=== PATIENT | male | born 1945 | race Caucasian/White ===

== ENCOUNTER → 2024-04-25 08:21 | Outpatient (REF) | payer MEDICARE, OTHER, SELFPAY | LOC: HWRAD 08:21 | PROVIDERS: ATTENDING PHYSICIAN Otolaryngology; FAMILY PHYSICIAN Family Medicine | DX: J32.8 Other chronic sinusitis (principal) | CPT/HCPCS: 70486 ==

== ENCOUNTER 2024-06-20 06:17 | Day surgery (SDC) | payer MEDICARE, OTHER, SELFPAY ==
[2024-06-20] VITALS (8 sets, daily range): BP systolic 109–142; BP diastolic 65–88; BMI 26.5
[2024-06-20] MEDS: NORMOSOL-R/PLASMALYTE-A 1000 IV (08:17)
== END 2024-06-20 13:05 | disposition home or self-care (01) ==
LOC: SDS 06:17
PROVIDERS: ATTENDING PHYSICIAN Otolaryngology
DX: J32.0 Chronic maxillary sinusitis (principal); J34.2 Deviated nasal septum
CPT/HCPCS: 31276; 31257; 30520; 31256; 88304; 88311; 93005

== ENCOUNTER → 2024-10-05 13:38 | Outpatient (REF) | payer MEDICARE, OTHER, SELFPAY | LOC: PAVMRI 13:38 | PROVIDERS: ATTENDING PHYSICIAN Otolaryngology; FAMILY PHYSICIAN Family Medicine | DX: H91.91 Unspecified hearing loss, right ear (principal) | CPT/HCPCS: 70553; A9575 ==

== ENCOUNTER → 2025-01-10 09:15 | Outpatient (REF) | payer MEDICARE, OTHER, SELFPAY | LOC: SDSPAT 09:15 | PROVIDERS: ATTENDING PHYSICIAN Surgery; FAMILY PHYSICIAN Family Medicine | DX: K40.90 Unilateral inguinal hernia, without obstruction or gangrene, not specified as recurrent (principal); K42.9 Umbilical hernia without obstruction or gangrene; Z01.818 Encounter for other preprocedural examination | CPT/HCPCS: 36415; 93005 ==

== ENCOUNTER 2025-01-19 06:28 | Day surgery (SDC) | payer MEDICARE, OTHER, SELFPAY ==
[2025-01-10 13:55] VITALS: BMI 27.0
[2025-01-19] VITALS (9 sets, daily range): BP systolic 108–135; BP diastolic 61–84; BMI 27.0
[2025-01-19] MEDS: TYLENOL 1000 MG PO (09:32)
--- NOTE | 2025-01-19 10:24 | W.SUR.PREOP ---
Pre-Operative Surgical Note
-
I have examined this patient prior to the performance of the scheduled procedure.
The patient's condition is unchanged from the time of the current History and
Physical and the patient is able to undergo the scheduled procedure.
--- NOTE | 2025-01-19 10:24 | HP.FOC2 ---
Focused History & Physical
Chief Complaint
HPI:
Chief Complaint: Right inguinal hernia, umbilical hernia
HPI / Indication for Planned Procedure: This is a 79-year-old male who presents with a symptomatic right inguinal hernia and found to have a concurrent asymptomatic umbilical hernia. Will plan for a robotic right inguinal hernia repair with mesh as
well as a robotic umbilical hernia repair with mesh.
Relevant Past Medical History: Negative
Relevant Social History: Negative
Relevant Family History: Negative
Relevant Past Surgical History: Negative
Review of Systems
Review of Pertinent Systems: All Systems Negative
Medication
See Medication form for detailed medications: Yes
Medication List (including Herbals & OTC):
amlodipine 2.5 mg tablet 2.5 mg PO DAILY 06/14/24
amlodipine 5 mg tablet 5 mg PO DAILY 06/14/24
finasteride 5 mg tablet 5 mg PO DAILY 06/14/24
tamsulosin 0.4 mg capsule 0.4 mg PO HS 06/14/24
trazodone 150 mg tablet 150 mg PO HS for sleep 06/14/24
lorazepam 0.5 mg tablet 0.5 mg PO BID PRN anxiety 01/10/25
Medications Reviewed: Yes
Allergies and Reactions
Patient has Allergies: No
Noted Allergies and Reactions:
Allergy/AdvReac Type Severity Reaction Status Date / Time
No Known Allergies Allergy Verified 01/19/25 09:21
Pertinent Physical Exam
All Other Systems: Negative
Head/Neck: Normal
Diagnosis / Assessment
This is a 79-year-old male who presents with a symptomatic right inguinal hernia and found to have a concurrent asymptomatic umbilical hernia.
Plan / Procedure
Will plan for a robotic right inguinal hernia repair with mesh as well as a robotic umbilical hernia repair with mesh.
Anesthesia/Sedation to be done by Anesthesia Provider: Yes
[2025-01-19] MEDS: NORMOSOL-R/PLASMALYTE-A 1000 IV (10:28)
--- NOTE | 2025-01-19 13:55 | W.IMMPOSTOP ---
Surgical Immed Post Op Note
-
Primary Surgeon: Edwardo Maier MD
Assisting Surgeon: None
Pre-op Diagnosis: [Right inguinal hernia, umbilical hernia]
Post-op Diagnosis: Same
Procedure Performed:
1. Robotic right inguinal hernia repair with mesh
2. Open umbilical hernia repair with mesh (2 cm)
Anesthesia Type: General
Specimen / Cultures: None
Estimated Blood Loss: 11 cc
Complications: None
Operative Findings: We began by doing a cutdown and hernia reduction at the umbilicus. The hernia containing preperitoneal fat was isolated and incised. Our 8 mm camera port was placed through here. On entry a very distended bladder was
identified so Rosado catheter was placed under the drapes before moving forward with the operation. Very large indirect inguinal hernia. No direct component, small femoral component (reduced), large broad-based cord lipoma, reduced. After
achieving the critical view of the n.p.o. the space was reinforced with an extra-large Bard 3D max mid weight uncoated polypropylene mesh. After removing the ports under visualization. The 2 cm umbilical hernia defect was repaired with a 5 cm
round Bard soft uncoated polypropylene mesh laid in the preperitoneal space followed by 3 [id number] 0 Surgilon sutures. The Rosado was removed at the end of the case.
--- NOTE | 2025-01-19 14:03 | OR.RPT ---
Operative Report
Operative Report
Patient Name: Blair Hernandez
: 1945
Date of Operation: 01/19/2025
Preoperative Diagnosis: Right inguinal hernia, umbilical hernia
Postoperative Diagnosis: Same
Procedure(s):
1. Robotic Inguinal Hernia Repair with mesh, right (AMBER approach)
2. Open umbilical hernia repair with mesh
Surgeon(s):
Dr. Maier
Casting Machine Service Operator(s):
Crista Benitez NP
Anesthesia: General
Estimated Blood Loss: 11 cc
Urine Output: None
Drains/Lines/Implants: XLarge 3D Max Bard mid weight uncoated polypropylene mesh, 5 cm round Bard soft uncoated polypropylene mesh.
Specimens: None
Indication for surgery: The patient has a history of groin pain and noted on exam to have a right inguinal and umbilical hernia(s). Following review of therapeutic options they have elected to undergo a minimally invasive repair.
Operative Findings: We began by doing a cutdown and hernia reduction at the umbilicus. The hernia containing preperitoneal fat was isolated and incised. Our 8 mm camera port was placed through here. On entry a very distended bladder was
identified so Rosado catheter was placed under the drapes before moving forward with the operation. Very large indirect inguinal hernia. No direct component, small femoral component (reduced), large broad-based cord lipoma, reduced. After
achieving the critical view of the n.p.o. the space was reinforced with an extra-large Bard 3D max mid weight uncoated polypropylene mesh. After removing the ports under visualization. The 2 cm umbilical hernia defect was repaired with a 5 cm
round Bard soft uncoated polypropylene mesh laid in the preperitoneal space followed by 3 [id number] 0 Surgilon sutures. The Rosado was removed at the end of the case.
Details of the operation:
The patient was brought to the Operating Room and placed in the supine position with the arms tucked. IV antibiotics were infused and Venodyne stockings placed. Following uneventful induction of general endotracheal anesthesia, an orogastric tube
was placed. The abdomen was prepped and draped in the usual sterile fashion. The abdomen was entered using an infraumbilical cutdown after isolating a 2 cm umbilical hernia. The sac was opened and an 8 mm trocar was passed through and
pneumoperitoneum was established. We then confirmed that no inadvertent injury was made while passing the trocar. We then placed two additional 8 mm ports in the left upper and right upper quadrants. We then docked the robot with a Prograsper in
the left hand port and monopolar scissors in the right. A large right indirect inguinal hernia was identified. In the midline, the bladder was notably distended precluding safe operation so a Rosado catheter was placed under the drapes by the
circulating nurse with some 700 cc of urine output. We then began by creating a flap at the level of the ASIS laterally working our way medially to the medial umbilical fold. Staying onto the peritoneum we were able to circumferentially dissect
around the hernia sac and and peel it off of the underlying spermatic cord and testicular vessels, taking care to preserve them. Medially we identified the midline pubis as well as Julio Cesar's ligament and ensured to dissect 2 cm below the pubic rim
over the bladder. After exposure of the entire myopectineal orifice we identified and reduced: A very large sized indirect inguinal hernia, no direct inguinal hernia, small femoral hernia, a medium cord lipoma, which was removed. After achieving
the critical view of the MPO we then fixated an Xlarge 3D max mesh with a 2-0 Vicryl stitch at coopers medially and superior laterally. The flap was then closed with a running 2-0 barbed monocryl suture ensuring that the tail was cut flush with the
medial fat pad so that no barbs were exposed. During the closure of the flap an Angiocath was inserted and 20 cc of quarter percent Marcaine was instilled. The area in the flap cavity was then evacuated of air confirming that the mesh was flush
and there were no folds. A small rent in the peritoneum was noted and closed with 2-0 Vicryl. All needles and instruments were then removed and the robot was undocked. The abdomen was then desufflated, and pneumoperitoneum evacuated. We then
turned our attention to the umbilical hernia defect. The peritoneal rent was closed and the preperitoneal space was developed for 3 cm in all directions. We then cut a 5 cm round Bard soft uncoated polypropylene mesh to size and placed a flat in
the space. The umbilical defect was then closed with 3 [id number] oh Surgilon sutures in the transverse direction. All skin sites were then closed with 4-0 Monocryl followed by Dermabond. Counts were correct and overall, the patient tolerated
the procedure well and was taken to the Recovery Room postoperatively in stable condition. The Rosado was removed at the end of the case.
I was the attending physician and performed the procedure with assistance of the ATTENDANT CHILD ACTIVITY above. The assistance of the ATTENDANT CHILD ACTIVITY was required due to the complexity of the procedure. During the procedure they assisted with port placement, instrument and needle
exchanges, and closure of the wound. I was present for all portions of the case, excluding skin closure.
Edwardo Maier MD
[2025-01-19] MEDS: FLOMAX 0.8 MG PO (16:54)
== END 2025-01-19 17:57 | disposition home or self-care (01) ==
LOC: SDS 06:28
PROVIDERS: ATTENDING PHYSICIAN Surgery
DX: K40.90 Unilateral inguinal hernia, without obstruction or gangrene, not specified as recurrent (principal); K42.9 Umbilical hernia without obstruction or gangrene
CPT/HCPCS: 49593; C1781